=== PATIENT | male | born 1965 ===

== ENCOUNTER 2018-07-20 18:02 | Emergency (ER) | payer BC ==
[2018-07-20 18:06] VITALS: BP 160/93; PULSE 71; RESP 16; TEMP 98.4; O2SAT 98
[2018-07-20] MEDS ORDERED: Lidocaine 1% w Epi 1:100,000 Inj INJ STA (18:26)
--- NOTE | 2018-07-20 18:28 | ED PDOC ---
Upper Extremity Pain/Injury Chief Complaint (Provider): bilateral hand injury History Per: Patient Additional Complaint(s): 53 y/o right hand dominant male presents to the ED for evaluation of bilateral hand injury that occurred 2 hours prior to arrival. Patient states he was attempting to shut his window at home when it slammed onto his hands causing laceration to lateral aspect of left hand and right 3rd digit. Patient applied sugar and egg whites to wounds to stop the bleeding and then came to ED. PMD: none <Bella Harris - Last Filed: 07/20/18 19:04> <Larisa Camacho - Last Filed: 07/21/18 00:08> Time Seen by Provider: 07/20/18 18:08 Chief Complaint (Nursing): Abnormal Skin Integrity Supervising Attending Note - Attestation: I have personally seen and examined this patient.: No I have reviewed all pertinent clinical information: Yes <Larisa Camacho - Last Filed: 07/21/18 00:08> Past Medical History Reviewed: Historical Data, Nursing Documentation, Vital Signs Vital Signs: Last Vital Signs Temp 98.4 F 07/20/18 18:03 Pulse 71 07/20/18 18:03 Resp 16 07/20/18 18:03 BP 160/93 H 07/20/18 18:03 Pulse Ox 98 07/20/18 18:03 - Medical History PMH: No Chronic Diseases - Surgical History Surgical History: No Surg Hx - Family History Family History: States: No Known Family Hx - Living Arrangements Living Arrangements: With Family - Social History Current smoker - smoking cessation education provided: No Alcohol: None Drugs: Denies - Immunization History Hx Tetanus Toxoid Vaccination: Yes (05/03/2018) <Bella Harris - Last Filed: 07/20/18 19:04> Vital Signs: Last Vital Signs Temp 98.4 F 07/20/18 18:03 Pulse 71 07/20/18 18:03 Resp 16 07/20/18 18:03 BP 160/93 H 07/20/18 18:03 Pulse Ox 98 07/20/18 19:43 <Larisa Camacho - Last Filed: 07/21/18 00:08> - Home Medications Home Medications: Ambulatory Orders Medication Instructions Recorded Cephalexin [Keflex] 500 mg PO TID #21 capsule 07/20/18 Ibuprofen [Motrin Tab] 800 mg PO Q8 PRN #20 tab 07/20/18 - Allergies Allergies/Adverse Reactions: Allergies Allergy/AdvReac Type Severity Reaction Status Date / Time No Known Allergies Allergy Verified 07/20/18 18:03 Review of Systems ROS Statement: Except As Marked, All Systems Reviewed And Found Negative Musculoskeletal: Positive for: Other (injury to both hands) <Bella Harris - Last Filed: 07/20/18 19:04> Physical Exam - Reviewed Nursing Documentation Reviewed: Yes Vital Signs Reviewed: Yes - Physical Exam Appears: Positive for: Well, Non-toxic, Uncomfortable Skin: Positive for: Normal Color. Negative for: Rash Eye Exam: Positive for: Normal appearance Extremity: Positive for: Other (2 cm Grossly contaminated laceration to ulnar aspect of the left hand (sugar and egg whites noted to wound. Additional superfcial abrasion noted to right 3rd digit fingerpad also contaminated with sugar and egg whites, full rom of all digits of both hands, normal distal sensation) Neurologic/Psych: Positive for: Alert, Oriented <Bella Harris - Last Filed: 07/20/18 19:04> - ECG O2 Sat by Pulse Oximetry: 98 (RA) Pulse Ox Interpretation: Normal - Other Rad Right hand x-ray X-Ray: Interpreted by Me, Viewed By Me X-Ray Interpretation: no fx, no dis, no FB <Bella Harris - Last Filed: 07/20/18 19:04> Medical Decision Making Medical Decision Making: Time: 1825 Plan: -- Hand Left 3 Views XR --Pain meds declined Abrasion to right third digit is superficial, no sutures indicated, wound was cleansed with normal saline and Betadine, bacitracin and bandage applied. Procedure Note: Under sterile conditions laceration to left hand was scrubbed with surgical brush then anesthetized with 8 mL of 1% lidocaine with epinephrine, good anesthesia was achieved, wound was copiously irrigated with normal saline and Betadine and explored for foreign bodies, no foreign bodies noted. 5-0 continuous uninterrupted suture was used to repair wound, good wound approximation was achieved, good bleeding control was achieved, procedure tolerated well by patient with no complications. Patient given wound care instructions, prescription for Keflex and Motrin provided. Scribe Attestation: Documented by Michael Bolton, acting as a scribe Bernardo Harris PA-C. Provider Scribe Attestation: All medical record entries made by the Scribe were at my direction and p ersonally dictated by me. I have reviewed the chart and agree that the record accurately reflects my personal performance of the history, physical exam, medical decision making, and the department course for this patient. I have also personally directed, reviewed, and agree with the discharge instructions and disposition. <Bella Harris - Last Filed: 07/20/18 19:04> Disposition - Patient ED Disposition Is Patient to be Admitted: No Counseled Patient/Family Regarding: Studies Performed, Diagnosis, Need For Followup, Rx Given - Disposition Disposition: Routine/Home Disposition Time: 19:41 <Bella Harris - Last Filed: 07/20/18 19:04> <Larisa Camacho - Last Filed: 07/21/18 00:08> - Clinical Impression Clinical Impression: Hand laceration - Disposition Referrals: [facility] [Outside] Condition: STABLE Additional Instructions: Wash wound daily with soap and water and apply Neosporin once per day. Take prescription meds as directed. Wound check 2-3 days, suture removal 10-14 days. Prescriptions: Cephalexin [Keflex] 500 mg PO TID #21 capsule Ibuprofen [Motrin Tab] 800 mg PO Q8 PRN #20 tab PRN Reason: Pain, Moderate (4-7) Instructions: Laceration Repair With Stitches (DC) Forms: [employer] [facility] (Malaysian), [facility] ED School/Work Excuse
--- NOTE | 2018-07-21 09:49 | RAD ---
PROCEDURE: Left Hand Radiographs. HISTORY: trauma COMPARISON: None. FINDINGS: BONES: No acute fracture or destructive bony lesion identified. JOINTS: Normal. No osteoarthritic changes. SOFT TISSUES: Normal. OTHER FINDINGS: None. IMPRESSION: Unremarkable left hand radiographs.
== END 2018-07-20 19:48 | disposition home or self-care (01) ==
LOC: H.ER 18:02
DX: S61.412A Laceration without foreign body of left hand, initial encounter (principal); W23.0XXA Caught, crushed, jammed, or pinched between moving objects, initial encounter; Y92.89 Other specified places as the place of occurrence of the external cause